=== PATIENT | male | born 1970 | race Caucasian/White ===

== ENCOUNTER → 2018-08-10 | Outpatient (CLI) | payer OTHER ==
[~2018-08-10] MED LIST: ACET65TA PO; AVEL1TAB2 PO; CATA0.2T PO; CELE40TA PO; COLA100C2 PO; COMBVENT INH; DEPA500T2 PO; HYDR-3713 PO; HYDR25TA8 PO; LEVA750T PO; LIDO5DIS TD; MILKSUS PO; MINI5CAP PO; MIRA33504 PO; MIRAPEX PO; NEUR600T PO; OMEG1CAP16 PO; OXYC10TA12 PO; OXYC10TA97 PO; SENO8.6T5 PO; TREXIMET; TREXIMET PO; VENL150T14 PO; VIST25CA PO
--- NOTE | 2018-08-10 11:21 | REP ---
Bilateral upper extremity deep vein duplex ultrasound: The deep veins demonstrate normal compression, normal Doppler color flow and normal Doppler waveforms with respiration augmentation at multiple levels from the brachial veins to the jugular veins on the right and the left . Impression: There is no deep vein thrombus in the right or the left upper extremities. . Electronically Signed by Lex Sotelo MD 08/10/2018 11:12 A
--- NOTE | 2018-08-10 11:50 | REP ---
Bilateral upper extremity arterial Doppler ultrasound: History: Poor circulation both hands with numbness swelling and diminish pulses. Findings: There is no evidence of focal stenosis. Some soft tissue edema is seen distally. Monophasic waveforms are noted bilaterally distal to the antecubital fossa. Normal triphasic waveforms are seen bilaterally proximal to this. No focal arterial abnormality is observed. Velocity chart right upper extremity: Subclavian artery proximal 136 cm/S Distal 102 Axillary artery 122 Brachial artery proximal 85 cm/S Mid 125 Distal 89 Ulnar artery proximal 78 cm/S Mid 81 Distal 01:05 Radial artery proximal 82 Mid 90 Distal 86 Velocity chart left upper extremity: Subclavian artery proximal 185 cm/S Distal 140 Axillary artery 95 Brachial artery proximal 135 Mid 126 Distal 01:24 Ulnar artery proximal 82 Mid 86 Distal 85 Radial artery proximal 67 Mid 83 Distal 80 Electronically Signed by Campbell Dawkins MD 08/10/2018 11:42 A
== END ==
LOC: M RAD 08:51
PROVIDERS: ATTEND Internal Medicine
DX: R53.1 Weakness (principal); R20.0 Anesthesia of skin; R22.33 Localized swelling, mass and lump, upper limb, bilateral

== ENCOUNTER → 2020-03-05 | Outpatient (CLI) | payer OTHER, SELFPAY | LOC: EEVIPCON 14:27 → M LABSMTC 14:27 | PROVIDERS: ATTEND Family Medicine | DX: Z20.828 Contact with and (suspected) exposure to other viral communicable diseases (principal) | CPT/HCPCS: C9803; U0003 ==